=== PATIENT | male | born 1955 | race Caucasian/White ===

== ENCOUNTER 2016-09-17 04:32 | Observation (INO) | payer BC ==
[~2016-09-17 04:32] MED LIST: ASPIRIN EC81 MG PO; BRILINTA 90 MG90 MG PO; COREG25 MG PO; DIABETA 2.5 MG2.5 MG PO; IMDUR ER TAB 3030 MG PO; LASIX20 MG PO; LEVAQUIN500 MG PO; LIPITOR20 MG PO; NITROSTAT0.4 MG SL; PROTONIX 40 MG40 M1 PO; TYLENOL W/CODEIN1 E1 PO; ZESTRIL20 MG PO; ZYRTEC10 MG PO
[2016-09-17 05:55] LABS: HEMOGLOBIN 14.9 gm/dl (14.0-17.5); RED BLOOD COUNT 5.13 M/UL (4.20-5.50); WHITE BLOOD COUNT 7.5 K/UL (4.5-11.0)
[2016-09-17 06:13] LABS: BUN/CREATININE RATIO 21 (0-10)
[2016-09-17] MEDS ORDERED: ALDACTONE25 MG PO (09:08)
[2016-09-17] MEDS ORDERED: ELIQUIS5 MG PO (09:09)
[2016-09-17] MEDS ORDERED: NEURONTIN 100100 MG PO (09:10)
[2016-09-17] MEDS ORDERED: DIGESTIVE PROB1 EACH PO (09:11)
[2016-09-18 06:01] LABS: HEMOGLOBIN 14.3 gm/dl (14.0-17.5); RED BLOOD COUNT 4.99 M/UL (4.20-5.50); WHITE BLOOD COUNT 8.1 K/UL (4.5-11.0)
[2016-09-18 06:27] LABS: BUN/CREATININE RATIO 21 (0-10)
== END 2016-09-18 20:15 | disposition home or self-care (01) ==
LOC: ER1 04:32 → ZEROF 08:28 → M/S 16:34
PROVIDERS: Family Medicine; ADMIT Internal Medicine
DX: R07.9 Chest pain, unspecified (principal); I48.0 Paroxysmal atrial fibrillation; I25.10 Atherosclerotic heart disease of native coronary artery without angina pectoris; I25.5 Ischemic cardiomyopathy; I11.0 Hypertensive heart disease with heart failure; I50.22 Chronic systolic (congestive) heart failure; E11.9 Type 2 diabetes mellitus without complications; E78.5 Hyperlipidemia, unspecified; K21.9 Gastro-esophageal reflux disease without esophagitis; Z87.891 Personal history of nicotine dependence; Z83.3 Family history of diabetes mellitus; Z79.01 Long term (current) use of anticoagulants; Z79.82 Long term (current) use of aspirin; Z79.899 Other long term (current) drug therapy; Z95.810 Presence of automatic (implantable) cardiac defibrillator; Z98.890 Other specified postprocedural states
CPT/HCPCS: ECHO; 36415; 71020; 78452; 80048; 80053; 80061; 82550; 82553; 82962; 83735; 83874; 84484; 85025; 93005; 93017; 93306; 99285; A9502; G0378; J2785

== ENCOUNTER 2021-11-16 11:04 | Emergency (ER) | payer MEDICARE, OTHER ==
[~2021-11-16 11:04] MED LIST changes: +ALDACTONE 25MG25 MG PO; +ALDACTONE25 MG PO; +ATORVASTATIN CA20 MG PO; +CARVEDILOL25 MG PO; +CARVEDILOL3.125 MG PO; +CEFUROXIME500 MG PO; +CETIRIZINE HCL10 MG PO; +DIGESTIVE PROB1 EACH PO; +ELIQUIS5 MG PO; +ENSURE ACTIVE237 ML PO; +FUROSEMIDE20 MG PO; +GLYBURIDE2.5 MG PO; +LISINOPRIL20 MG PO; +LISINOPRIL5 MG PO; +LOMOTIL 2.5-0.1 EACH PO; +MIRALAX17 GM PO; +NEURONTIN 100100 MG PO; +PANTOPRAZOLE SO40 MG PO; +PLETAL 100 MG100 MG PO; +PROBIOTIC1 EAC1 PO; +SENNA PLUS TAB1 EACH PO; +THERAGRAN M TAB1 EA PO
[2021-11-16 12:32] LABS: BUN/CREATININE RATIO 32 (0-10)
[2021-11-16 12:33] LABS: HEMOGLOBIN 14.2 gm/dl (14.0-17.5); RED BLOOD COUNT 4.82 M/UL (4.20-5.50); WHITE BLOOD COUNT 6.7 K/UL (4.5-11.0)
== END 2021-11-16 13:05 | disposition short-term general hospital (02) ==
LOC: ER1 11:04
PROVIDERS: Emergency Medicine
DX: I63.9 Cerebral infarction, unspecified (principal); G45.9 Transient cerebral ischemic attack, unspecified; I10 Essential (primary) hypertension; Z20.822 Contact with and (suspected) exposure to COVID-19; D69.6 Thrombocytopenia, unspecified; I25.2 Old myocardial infarction; E11.9 Type 2 diabetes mellitus without complications
CPT/HCPCS: 70450; 71045; 80053; 82550; 82553; 82962; 84484; 85025; 85610; 85730; 93005; 99285; J2997; U0002

== ENCOUNTER → 2022-02-15 | Outpatient (CLI) | payer MEDICARE, OTHER | LOC: HEART 5 08:55 | DX: I21.3 ST elevation (STEMI) myocardial infarction of unspecified site (principal); I25.10 Atherosclerotic heart disease of native coronary artery without angina pectoris; I11.0 Hypertensive heart disease with heart failure; I50.22 Chronic systolic (congestive) heart failure; I25.5 Ischemic cardiomyopathy; I08.3 Combined rheumatic disorders of mitral, aortic and tricuspid valves | CPT/HCPCS: 93306 ==

== ENCOUNTER → 2022-02-23 | Outpatient (CLI) | payer MEDICARE, OTHER ==
[2022-02-23 09:59] LABS: HEMOGLOBIN 14.4 gm/dl (14.0-17.5); RED BLOOD COUNT 4.82 M/UL (4.20-5.50); WHITE BLOOD COUNT 7.5 K/UL (4.5-11.0)
[2022-02-23 10:40] LABS: BUN/CREATININE RATIO 21 (0-10)
== END ==
LOC: LAB 09:32
PROVIDERS: Internal Medicine Cardiovascular Disease
DX: Z45.02 Encounter for adjustment and management of automatic implantable cardiac defibrillator (principal); I50.22 Chronic systolic (congestive) heart failure; I25.10 Atherosclerotic heart disease of native coronary artery without angina pectoris; I25.5 Ischemic cardiomyopathy
CPT/HCPCS: 36415; 71046; 80048; 85025

== ENCOUNTER → 2022-02-27 | Outpatient (CLI) | payer MEDICARE, OTHER ==
[~2022-02-27] MED LIST changes: +ATORVASTATIN CA80 MG PO; +CLEOCIN HCL300 MG PO; +ESCITALOPRAM OX10 MG PO; +HYDROCODON-ACE1 EAC4 PO; +LEVOFLOXACIN500 MG PO; +LISINOPRIL2.5 MG PO; +LOPRESSOR 25 MG25 MG PO
== END ==
LOC: CATH 07:17
DX: Z45.02 Encounter for adjustment and management of automatic implantable cardiac defibrillator (principal); I11.0 Hypertensive heart disease with heart failure; I50.22 Chronic systolic (congestive) heart failure; I25.5 Ischemic cardiomyopathy; I48.0 Paroxysmal atrial fibrillation; I25.10 Atherosclerotic heart disease of native coronary artery without angina pectoris; I25.2 Old myocardial infarction; E11.9 Type 2 diabetes mellitus without complications; Z95.5 Presence of coronary angioplasty implant and graft; Z86.73 Personal history of transient ischemic attack (TIA), and cerebral infarction without residual deficits; Z88.8 Allergy status to other drugs, medicaments and biological substances; Z79.01 Long term (current) use of anticoagulants; Z79.899 Other long term (current) drug therapy
CPT/HCPCS: 33240; 82962; 93641; 99152; 99153; C1721; J2250; J3010; J3370; J7040; J7050